=== PATIENT | male | born 1965 | race Caucasian/White ===

== ENCOUNTER 2019-08-15 10:19 | Emergency (ER) | payer BC ==
[~2019-08-15] VITALS: Ht 180.3 cm; Wt 113.6 kg
[2019-08-15 10:27] VITALS: TEMP 97.4
[2019-08-15 11:30] LABS: BASO # 0.1 (0.0-0.2); EOS # 0.1 (0.0-0.7); EOS % 1.2 % (0-4.0); GRAN # 5.9 (1.4-6.5); GRAN % 71.8 % (42.2-75.2); HEMATOCRIT 48.8 % (42.0-52.0); HEMOGLOBIN 16.8 g/dl (13.5-18.0); LYMPH # 1.5 (1.2-3.4); LYMPH % 18.8 % (20.0-51.0); MEAN CELL VOLUME 91 fl (80.0-100.0); MEAN CORPUSCULAR HEMOGLOBIN 32 pg (27.0-31.0); MEAN CORPUSCULAR HGB CONC 34 g/dl (33.0-37.0); MEAN PLATELET VOLUME 10.7 fl (7.4-10.4); MONO # 0.6 (0.1-0.6); MONO % 6.7 % (1.7-9.3); PLATELET COUNT 197 K/mm3 (130-400); RED BLOOD COUNT 5.34 M/mm3 (4.20-5.60); REDCELL DISTRIBUTION WIDTH-CV 13.3 % (11.5-14.5)
[2019-08-15 11:51] LABS: ALANINE AMINOTRANSFERASE 35 U/L (4-49); ALBUMIN 4.7 gm/dL (3.5-5.0); ALKALINE PHOSPHATASE 74 U/L (50-136); ANION GAP 9 mmol/L (7-16); AST,SGOT 32 U/L (15-37); BILIRUBIN,TOTAL 0.7 mg/dL (0.0-1.0); BLOOD UREA NITROGEN 15 mg/dL (9-20); CALCIUM 9.5 mg/dL (8.4-10.2); CARBON DIOXIDE 26 mmol/L (22-30); CHLORIDE 103 mmol/L (98-107); CREATININE, serum 0.87 (0.66-1.25); GLUCOSE 130 mg/dL (74-106); POTASSIUM 4.1 mmol/L (3.4-5.0); SODIUM 137 mmol/L (137-145)
[2019-08-15 11:52] LABS: C-REACTIVE PROTEIN < 0.5 mg/dL (0.0-0.9)
[2019-08-15 12:01] LABS: TROPONIN-I < 0.012 ng/mL (0.000-0.035)
[2019-08-15] MEDS ORDERED: LIPITOR 10MG10 MG PO (12:29)
[2019-08-15] MEDS ORDERED: PROAIR HFA0.09 MG/AC IH (12:36)
[2019-08-15] MEDS ORDERED: CLEVER CHOICE1 EA20 MC (12:36)
[2019-08-15] MEDS ORDERED: ATIVAN 0.50.5 MG/TAB PO (12:36)
[2019-08-15 13:00] VITALS: BP 143/90; PULSE 78
== END 2019-08-15 13:25 | disposition home or self-care (01) ==
LOC: COL.ER 10:19
PROVIDERS: Nurse Practitioner
DX: R06.02 Shortness of breath (principal)

== ENCOUNTER → 2019-08-15 | Emergency (ER) ==
[~2019-08-15] MED LIST: ATIVAN 0.50.5 MG/TAB PO; CLEVER CHOICE1 EA20 MC; LIPITOR 10MG10 MG PO; PROAIR HFA0.09 MG/AC IH
== END ==
LOC: COL.ER 10:16
DX: Z72.9 Problem related to lifestyle, unspecified (principal)

== ENCOUNTER 2019-08-23 07:38 | Emergency (ER) | payer BC ==
[~2019-08-23] VITALS: Ht 180.3 cm; Wt 113.6 kg
[2019-08-23 07:51] VITALS: TEMP 98.5
[2019-08-23 10:31] LABS: BASO # 0.1 (0.0-0.2); BASO % 1.1 % (0.0-2.0); EOS # 0.1 (0.0-0.7); EOS % 0.8 % (0-4.0); GRAN # 6.6 (1.4-6.5); GRAN % 77.6 % (42.2-75.2); HEMATOCRIT 46.5 % (42.0-52.0); HEMOGLOBIN 15.8 g/dl (13.5-18.0); LYMPH # 1.2 (1.2-3.4); LYMPH % 14.4 % (20.0-51.0); MEAN CELL VOLUME 92 fl (80.0-100.0); MEAN CORPUSCULAR HEMOGLOBIN 31 pg (27.0-31.0); MEAN CORPUSCULAR HGB CONC 34 g/dl (33.0-37.0); MONO # 0.5 (0.1-0.6); MONO % 5.7 % (1.7-9.3); PLATELET COUNT 198 K/mm3 (130-400); RED BLOOD COUNT 5.06 M/mm3 (4.20-5.60); REDCELL DISTRIBUTION WIDTH-CV 13.3 % (11.5-14.5)
[2019-08-23 10:41] LABS: ALANINE AMINOTRANSFERASE 16 U/L (4-49); ALBUMIN 4.5 gm/dL (3.5-5.0); ALKALINE PHOSPHATASE 77 U/L (50-136); ANION GAP 7 mmol/L (7-16); AST,SGOT 25 U/L (15-37); BILIRUBIN,TOTAL 0.5 mg/dL (0.0-1.0); BLOOD UREA NITROGEN 15 mg/dL (9-20); CALCIUM 9.3 mg/dL (8.4-10.2); CARBON DIOXIDE 25 mmol/L (22-30); CHLORIDE 106 mmol/L (98-107); CREATININE, serum 0.73 (0.66-1.25); GLUCOSE 136 mg/dL (74-106); POTASSIUM 4.4 mmol/L (3.4-5.0); SODIUM 138 mmol/L (137-145); TOTAL PROTEIN 7.5 gm/dL (6.4-8.2)
[2019-08-23 10:43] LABS: C-REACTIVE PROTEIN < 0.5 mg/dL (0.0-0.9)
[2019-08-23 10:57] LABS: TROPONIN-I < 0.012 ng/mL (0.000-0.035)
[2019-08-23] MEDS ORDERED: VISTARIL50 MG PO (11:03)
[2019-08-23] MEDS ORDERED: PREDNISONE20 MG PO (11:03)
[2019-08-23 11:18] VITALS: BP 114/90; PULSE 88
== END 2019-08-23 11:15 | disposition home or self-care (01) ==
LOC: COL.ER 07:38
PROVIDERS: Physician Assistant
DX: R06.00 Dyspnea, unspecified (principal); K21.9 Gastro-esophageal reflux disease without esophagitis